=== PATIENT | female | born 1975 | race Caucasian/White ===

== ENCOUNTER → 2019-09-29 15:38 | Outpatient (REF) | payer OTHER, SELFPAY | LOC: ANHLAB 15:38 | PROVIDERS: PCP Internal Medicine; Visit Provider Nurse Practitioner | DX: D22.5 Melanocytic nevi of trunk (principal); D22.62 Melanocytic nevi of left upper limb, including shoulder | CPT/HCPCS: 88305 ==

== ENCOUNTER 2021-10-10 10:03 | Observation (INO) | payer OTHER, SELFPAY ==
[2021-10-10] VITALS (17 sets, daily range): BP systolic 117–168; BP diastolic 71–103; PULSE 59–255; RESP 14–23; TEMP 36.3–37.3; O2SAT 97–100; BMI 26.4
--- NOTE | 2021-10-10 | ECHO_ITS ---
Patient Info Name: Sara Clay Age: 46 years : 1975 Gender: Female Ht: 62 in Wt: 146 lbs BSA: 1.72 m2 HR: 68 bpm BP: 125 / 71 mmHg Heart Rhythm: Sinus Rhythm Technical Quality: Fair Exam Date: 10/10/2021 1:14 PM Exam Location: [facility] Card Pulmonary Patient Status: Inpatient Admit Date: 10/10/2021 Staff Ordering Physician: Adriana Rainey DO Distillery Laborer: Oriana Feldman RDCS Attending Provider: Marta Parker MD Referring Physician: Redd TELLEZ; Exam Type: CA echo doppler color flow Study Info Indications - tachycardia Complete two-dimensional, color flow and Doppler transthoracic echocardiogram is performed. Summary 1. Complete two-dimensional, color flow and Doppler transthoracic echocardiogram is performed. 2. Normal left ventricular size and thickness. Good systolic function of all segment with no segmental wall motion abnormalities. Ejection fraction 67%. Normal diastolic function. 3. Left atrial chamber dimension is mildly enlarged. 4. Normal sinus rhythm. Left Ventricle Left ventricular chamber dimension is normal. Left ventricular systolic function is normal, estimated at Empty. There is no increased left ventricular wall thickness. Left ventricular septal wall motion is normal. The left ventricular diastolic function is normal. Right Ventricle Right ventricular chamber dimension is normal. Right ventricular systolic function is normal. Left Atria Left atrial chamber dimension is mildly enlarged. Right Atria Right atrial chamber dimension is normal. Aortic Valve The aortic valve is trileaflet. There is no aortic valve sclerosis. There is no aortic valve stenosis. There is no aortic valve regurgitation. Pulmonic Valve The pulmonic valve is normal. There is no pulmonic valve stenosis. There is trace pulmonic regurgitation. Mitral Valve The mitral valve has normal leaflets. There is no mitral valve stenosis. There is trace mitral valve regurgitation. Tricuspid Valve The tricuspid valve leaflets are normal. There is no significant tricuspid valve stenosis. There is trace tricuspid valve regurgitation. No pulmonary hypertension, estimated pulmonary arterial systolic pressure is 29 mmHg. Pericardium/Pleural The pericardium appears normal. There is no pericardial effusion. Inferior Vena Cava Normal inferior vena cava with >50% collapse upon inspiration consistent with Empty right atrial pressure, 10 mmHg. Aorta The aortic root size at the sinus of Valsalva is normal. The prox ascending aorta size is normal. Left Ventricular Outflow Tract Name Value Normal LVOT 2D LVOT Diameter 2.0 cm LVOT Doppler LVOT Peak Gradient 7 mmHg LVOT Mean Gradient 3 mmHg LVOT VTI 23 cm LVOT VTI/AV VTI Ratio 0.7 LVOT Stroke Volume 74 ml LVOT CO 4.9 l/min LVOT CI 2.9 l/min/m2 Pulmonic Valve
--- NOTE | ~2021-10-10 | XR_ITS ---
XR chest 2V DATE: 10/10/2021 10:48 INDICATION: Central chest pain between shoulder blades. Palpitations. TECHNIQUE: PA and lateral views COMPARISON: None FINDINGS: Normal heart size. No hilar or mediastinal enlargement. No pulmonary infiltrate or consolid ation, pleural effusion or pulmonary vascular congestion or pneumothorax. Thoracic and lumbar scoliosis. IMPRESSION: No active cardiopulmonary disease Reviewed, dictated and finalized at location B.
--- NOTE | 2021-10-10 10:07 | ECG_ITS ---
Measurements Intervals [place] Rate: 248 P: MN: 0 QRS: -71 QRSD: 243 T: 180 QT: 298 QTc: 607 Interpretive Statements WIDE COMPLEX TACHYCARDIA, PROBABLY VENTRICULAR TACHYCARDIA NO PREVIOUS ECG AVAILABLE FOR COMPARISON Electronically Signed On 10-10-2021 19:33:41 CDT by Addie Mahoney M.D.
--- NOTE | 2021-10-10 10:16 | ECG_ITS ---
Measurements Intervals [place] Rate: 76 P: 61 IN: 146 QRS: 58 QRSD: 86 T: 66 QT: 351 QTc: 396 Interpretive Statements SINUS RHYTHM WITH SINUS ARRHYTHMIA ST DEPRESSION, CONSIDER SUBENDOCARDIAL INJURY Electronically Signed On 10-10-2021 10:57:57 CDT by Tyler Degroot M.D.
--- NOTE | 2021-10-10 10:25 | ED.CHESTPAIN ---
HPI - Chest Pain General Chief Complaint: Chest Pain Stated Complaint: chest pain Time Seen by Provider: 10/10/21 10:23 History of Present Illness HPI narrative: Pt was on stair master for about 20 minutes and felt her heart start racing and had some chest heaviness. Pt sat for a bit and it did not resolve so she called her to come get her and take her to the ER. Pt has no cardiac history. Only cardiac family history was granfather of heart attack at young age. Pt valsalvaed once in room and converted. Pt says she still has some mild chest heaviness. Related Data Home Medications Medication Instructions Recorded Confirmed venlafaxine 37.5 mg 37.5 mg PO DAILY 09/29/19 10/10/21 capsule,extended release 24 hr (Effexor XR) dextroamphetamine-amphetamine 15 1 tablet PO DAILY 10/10/21 10/10/21 mg tablet meloxicam 15 mg tablet 1 tablet PO DAILY 10/10/21 10/10/21 sumatriptan succinate 100 mg tablet 1 tablet PO PRN headache 10/10/21 10/10/21 Allergies Allergy/AdvReac Type Severity Reaction Status Date / Time Quinolones Allergy Mild Rash Verified 10/10/21 10:14 levofloxacin Allergy Unknown danii Verified 10/10/21 10:14 Review of Systems Review of Systems: All systems reviewed & are unremarkable except as noted in HPI and below Cardiovascular: Cardiovascular: Reports as per HPI, Reports chest pain and Reports rapid heart rate [facility] Surgical History Surgical History (Updated 09/29/19 @ 15:23 by Nereyda Flores CMA) History of 2 sections History of hernia repair History of knee surgery Family History Family History (Updated 10/10/21 @ 14:57 by Edwige Saunders RN) Father Diabetes mellitus Hypertension Grandparent Myocardial infarction Social History Social History Years smoked: 5 Smoking status: Former smoker Tobacco type: cigarettes Smoking end date: 10/10/21 Alcohol intake: never Substance use: never Spiritual care concerns: No Exam Const: General: healthy appearing and no acute distress Nutritional Appearance: well nourished Orientation/consciousness: patient oriented x3 Limitations: no limitations Neck: Neck: normal visual inspection Chest: Chest palpation & inspection: normal inspection of the chest Resp: Effort & Inspection: normal respiratory effort Auscultation: clear to auscultation bilaterally Cardio: Rate: regular rate Rhythm: regular rhythm GI: Auscultation: normal bowel sounds Skin: General skin exam: normal color Rashes: no rashes Wounds: no wounds Neuro: General: patient oriented x3, moves all extremities, no meningeal signs and no focal motor deficits Cranial nerves: Yes Nystagmus not present Speech: normal speech Gait exam (Neuro): Normal gait present Extrem: General: normal to inspection and no clubbing, cyanosis or edema Psych: Mental Status: mental status grossly normal Affect: normal affect Attitude: cooperative Course Course Emergency Course: pt remained stable after conversion, cardiology evaluated, thinks initial ekg may be svt with abarency. will follow. d/w crystal will admit Vital Signs Vital signs: Vital Signs Temperature 97.4 F L 10/10/21 10:07 Pulse Rate 250 H 10/10/21 10:07 Respiratory Rate 18 10/10/21 10:07 Blood Pressure 168/103 H 10/10/21 10:07 Pulse Oximetry 99 10/10/21 10:07 Oxygen Delivery Room Air 10/10/21 10:07 Temperature 98.9 F 10/10/21 16:00 Pulse Rate 69 10/10/21 16:00 Respiratory Rate 14 10/10/21 16:00 Blood Pressure 117/79 10/10/21 16:00 Pulse Oximetry 100 10/10/21 16:00 Oxygen Delivery Room Air 10/10/21 10:07 MDM - Chest Pain Lab Data Result diagrams: 10/10/21 10:20 10/10/21 10:20 Labs: Lab Results 10/10/21 10/10/21 10/10/21 Range/Units 10:19 10:20 10:20 WBC 7.1 (4.5-10.0) K/mm3 RBC 4.67 (4.2-5.4) M/mm3 Hgb 14.5 (12.0-15.0) g/dL Hct 42.6 (37.0-47.0) % MCV 91.2 (80-
[2021-10-10 10:27] LABS: Basophils Absolute Auto 0.1 K/mm3 (0.0-0.1); Eosinophils Absolute Auto 0.1 K/mm3 (0-0.3); Eosinophils Percent Auto 1.5 % (0-4.4); Hematocrit 42.6 % (37.0-47.0); Hemoglobin 14.5 g/dL (12.0-15.0); Immature Granulocyte Absolute 0.02 K/mm3 (0.00-0.031); Immature Granulocyte Percent A 0.3 % (0-0.5); Lymphocytes Absolute Auto 1.38 K/mm3 (0.9-3.2); Lymphocytes Percent Auto 19.4 % (18.3-44.2); Mean Corpuscular Volume 91.2 fl (80-100); Mean Platelet Volume 9.1 fl (7.4-10.4); Monocytes Absolute Auto 0.5 K/mm3 (0.1-0.6); Monocytes Percent Auto 6.3 % (2.6-8.5); Neutrophils Absolute Auto 5.1 K/mm3 (1.3-6.7); Neutrophils Percent Auto 71.5 % (45.5-73.1); Platelet Count Result 277 k/mm3 (150-375); Red Blood Count 4.67 M/mm3 (4.2-5.4); Red Cell Distribution Width 12.8 % (11.5-14.5); White Blood Count 7.1 K/mm3 (4.5-10.0)
[2021-10-10] MEDS: ASPIRIN 81 MG CHEWABLE TABLET 324 MG PO (10:27)
[2021-10-10] MEDS: NITROGLYCERIN OINTMENT 1 INCH DOSE TRANSDERM (10:28)
[2021-10-10 10:36] LABS: Alanine Aminotransferase 34 U/L (6-35); Albumin Level 4.2 g/dL (3.5-5.1); Alkaline Phosphatase 61 U/L (38-126); Anion Gap 5 mmol/L (8-16); Aspartate Amino Transferase 42 U/L (14-36); Bilirubin,Total 0.9 mg/dL (0.2-1.3); Blood Urea Nitrogen 17 mg/dL (7-17); Calcium 8.6 mg/dL (8.4-10.2); Carbon Dioxide 25 mmol/L (22-30); Chloride 104 mmol/L (98-107); Estimated CRCL calculation 68 ml/min; Estimated Glomerular Filt Rate > 60; Glucose 154 mg/dL (65-110); Lipase 77 U/L (23-300); Potassium 3.8 mmol/L (3.4-5.0); Sodium 134 mmol/L (137-145)
[2021-10-10 10:37] LABS: INR 1.1; Prothrombin Time 13.8 Seconds (11.1-14.7)
[2021-10-10 10:51] LABS: Troponin I 0.027 ng/mL (0.000-0.034)
[2021-10-10 11:31] LABS: Magnesium 1.6 mg/dL (1.6-2.3)
[2021-10-10 13:55] LABS: Troponin I 0.147 ng/mL (0.000-0.034)
--- NOTE | 2021-10-10 14:00 | ECG_ITS ---
Measurements Intervals [place] Rate: 55 P: 33 [place]: 139 QRS: 55 QRSD: 84 T: 64 QT: 428 QTc: 411 Interpretive Statements SINUS BRADYCARDIA ST ELEVATION, PROBABLY EARLY REPOLARIZATION [ST ELEVATION WITH NORMALLY INFLECTED T WAVE] COMPARED TO ECG 10/10/2021 10:13:56 SINUS BRADYCARDIA NOW PRESENT, AND THE PREVIOUSLY NOTED ST SEGMENT DEPRESSION HAS RESOLVED. Electronically Signed On 10-10-2021 19:38:11 CDT by Addie Mahoney M.D.
--- NOTE | 2021-10-10 14:30 | ADMGEN ---
This patient, Sara Clay, was admitted to IMU Room 201-01 @ 1400 . Patient oriented to hospital policies and general routines including ID bracelet, bed and alarms, visiting hours, pain management, procedures, bathroom and other care routines, personal items, smoking policy, room service/diet, and visiting hours. Information on how to activate the Rapid Response Team has been discussed. Patient are encouraged to report perceived risks to care and to ask questions if they do not understand what they are told or what they should do.
[2021-10-10 16:34] LABS: Troponin I 0.352 ng/mL (0.000-0.034)
--- NOTE | 2021-10-10 17:24 | PM.CNCAR ---
Assessment and Plan Assessment and plan (1) Ventricular tachycardia: Code(s): I47.2 - Ventricular tachycardia Status: Acute Assessment and Plan: Patient presented with a wide complex tachycardia when extremely rapid heart rate. This may be a ventricular tachycardia Other options could be an SVT with aberrancy or pre-excitation, although I do not see any delta wave, or perhaps a 1-1 atrial flutter. Resting EKG also shows some ST elevation/early repolarization, so is not normal. Any case, I think that this is a worrisome heart rhythm and there is potential that this could lead to syncope, or degenerate into ventricular fibrillation and cardiac arrest. Structurally normal heart normal heart by echo. Have not ruled out underlying CAD but my index of suspicion is low. Reviewed with an grand jury deputy sheriff who recommends inpatient workup. Patient prefers to go home on a beta-layton. I have strongly urged her not to go home and to see an grand jury deputy sheriff as an inpatient. Patient has consented to a transfer to [facility] in [place] to see [facility] electrophysiologists. I spoke to Dr. Malik from [facility] who accepts the patient in transfer. I have spoken to the transfer center at [facility] in [place] but unfortunately there are no beds available at the moment. Spoke to Dr. Parker, hospitalist In the meantime, add a beta-layton. (2) Elevated troponin: Code(s): R77.8 - Other specified abnormalities of plasma proteins Status: Acute Assessment and Plan: ST segment depression and elevated troponin which is likely the result of the extreme tachycardia although underlying CAD has not been excluded. (3) Family history of sudden cardiac : Code(s): Z82.41 - Family history of sudden cardiac Status: Acute Assessment and Plan: Grandfather suffered sudden cardiac in his 40s. 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 Parker for my advice and opinion regarding her arrhythmia, and elevated troponin, in consultation. Patient has been previously healthy and exercises regularly for number of years. She has never had any problems with chest pain or palpitations, nor any syncope. Today she was about 20 minutes into her stair stepper workout when she suddenly felt her heart race and she felt presyncopal. She stopped exercise, called her and had him bring her to the emergency room. She tried the Valsalva maneuver with no success. She started having tightness in her chest radiating to the interscapular area. On arrival to our emergency room she was in a wide complex tachycardia with a heart rate of 246 beats per minute. She tried the Valsalva maneuver 1 more time and she converted to sinus rhythm with some lateral ST depression. She has been fine since then. Her troponins have increased to 0.3. Her grandfather suddenly at the dinner table in his early 40s. She has taken Adderall, same dose for the last 3 years. One cup of coffee daily, and an energy drink in the afternoon. No hypertension, diabetes. Review of Systems Constitutional: Constitutional: Denies fatigue and Denies fever(s) Eyes: Eyes: Denies blurry vision ENT: Reports dizziness and Denies epistaxis Cardiovascular: Cardiovascular: Reports chest pain, Denies syncope, Reports rapid heart rate, Denies edema, Denies leg edema, Reports lightheadedness, Denies palpitations, Denies dyspnea and Denies dyspnea on exertion Respiratory: Respiratory: Denies chest congestion, Denies cough, Denies dyspnea, Denies dyspnea on exertion and Denies wheezing Gastrointestinal: Gastrointestinal: Denies abdominal pain and Denies hematochezia Genitourinary: Genitourinary: Denie
[2021-10-10] MEDS: METOPROLOL TARTRATE 25 MG TABLET PO (20:18)
--- NOTE | 2021-10-10 21:05 | PC.NURSE ---
Pt states she is going to leave AMA because there are no available beds at [facility]. asbestos removal supervisor notified and called [facility] to see if there was an estimated time the bed would be available. [place]'s packing and final assembly supervisor states that pt's are boarding in the ED there and it is unlikely pt would have a bed tonight. Pt states she doesn't understand why, if her condition was such an emergency, she wasn't being transferred now. Pt then states she does understand that there are no beds available, but she doesn't see the point in being monitored here. Pt also states that she understands that her heart could produce a fatal heart rhythm and that is why she was being monitored. Dr. Mahoney aware that pt is leaving AMA, as well as Lorena Watters, DARRICK. Pt's to room to escort pt home.
--- NOTE | 2021-10-10 21:27 | PM.IMHP ---
H&P: HPI History of Present Illness Date/Time: Patient was placed observation status for expected length of stay less than 23 hours for management, will plan to re-evaluate tomorrow for improvement. 10/10/21 1220 Chief Complaint: Palpitations Narrative: Ms. Clay is a 46-year-old female who presented emergency room with complaints of palpitations and lightheadedness. Patient states that she was working out on a StairMaster and approximately 930 she began having lightheadedness and palpitations. Patient states that this feeling continued she felt like she was going to pass out so she got off of the machine and sat down and began having chest discomfort in her midsternal area that felt like an elephant was sitting on her chest and the pain radiated to her shoulder blades. Patient states that this continued and she called her and asked him to bring her to the emergency room for further evaluation. Upon evaluation in emergency room patient was noted to have an EKG showing SVT with aberrancy and patient was about to receive medicine and she performed a vagal maneuver and she then subsequently went to a normal sinus rhythm. Patient's EKG initially did show inverted T-waves in V1 and V2 with ST depressions in V3 and V4. Patient states that she has had mild palpitations in the past, but they only lasted a few seconds at a time. Patient states that she does have a past medical history of her nauseous disease and was on Plaquenil at 1 point time, but she has not been on medication for years. Patient states she also has a history of ADD and does take Adderall for this. Patient states that she typically is very fit works out multiple times a week. Patient denies any history of SVT, myocardial infarction, [id number], or atrial fibrillation. Patient denied any associated shortness of breath with the above symptoms. Patient denies any family history of sudden cardiac , myocardial infarction, Marfan syndrome, or ehlors danlos. Review of Systems Review of Systems: A 12 point review of systems was completed patient all pertinent positive and negative per HPI the remainder are unremarkable. [facility] Past Medical History Medical History (Updated 10/10/21 @ 19:09 by Addie Mahoney MD) Family history of sudden cardiac Migraines Positive ESTELITA (antinuclear antibody) Raynauds disease Surgical History Surgical History (Updated 09/29/19 @ 15:23 by Nereyda Flores CMA) History of 2 sections History of hernia repair History of knee surgery Family History Family History (Updated 10/10/21 @ 19:08 by Addie Mahoney MD) Father Diabetes mellitus Hypertension Grandparent Sudden cardiac suddenly at the dinner table, no known prior heart disease, in his early 40s. Mother Alive and well Social History Social History Years smoked: 5 Smoking status: Former smoker Tobacco type: cigarettes Smoking end date: 10/10/21 Alcohol intake: never Substance use: never Spiritual care concerns: No Meds Home Medications and Allergies Home Medications Medication Instructions Recorded Confirmed Type venlafaxine 37.5 mg 37.5 mg PO DAILY 09/29/19 10/10/21 History capsule,extended release 24 hr (Effexor XR) dextroamphetamine-amphetamine 15 1 tablet PO DAILY 10/10/21 10/10/21 History mg tablet meloxicam 15 mg tablet 1 tablet PO DAILY 10/10/21 10/10/21 History sumatriptan succinate 100 mg tablet 1 tablet PO PRN headache 10/10/21 10/10/21 History Allergies Allergy/AdvReac Type Severity Reaction Status Date / Time Quinolones Allergy Mild Rash Verified 10/10/21 10:14 levofloxacin Allergy Unknown danii Verified 10/10/21 10:14 Vital Signs Vital Signs - 24 hr 10/10/21 10:07 10/10/21 10:15 10/10/21 10:23 Temperature 36.3 C L Pulse Rate 250 H 255 H 74 Respiratory Rate 18 Blood Pressure 168/103 H Pulse Oximetry 99 Oxygen Delivery Room Air
== END 2021-10-10 21:08 | disposition left against medical advice (07) ==
LOC: ANHED 12:26 → ANHIMU 13:10
PROVIDERS: Admitting Provider Family Medicine; Emergency Provider Emergency Medicine; Visit Provider Family Medicine
DX: R07.9 Chest pain, unspecified (principal); I47.1 Supraventricular tachycardia; R77.8 Other specified abnormalities of plasma proteins; Z82.41 Family history of sudden cardiac death; F17.210 Nicotine dependence, cigarettes, uncomplicated
CPT/HCPCS: 36415; 71046; 80053; 83690; 83735; 84484; 85025; 85610; 85730; 93005; 93306; 99285; A9270; G0378; J0153; J7030